=== PATIENT | female | born 1990 | race Caucasian/White ===

== ENCOUNTER 2022-05-19 16:51 | Inpatient (IN) | payer OTHER ==
[~2022-05-19] VITALS: Ht 175.3 cm; Wt 105.7 kg
[2022-05-19 17:54] LABS: HEMOGLOBIN 12.5 gm/dl (12.3-15.3); RED BLOOD COUNT 4.02 M/UL (4.00-5.10); WHITE BLOOD COUNT 12.6 K/UL (4.5-11.0)
[2022-05-19] MEDS ORDERED: PRENATAL TABLE1 EAC6 PO (18:25)
[2022-05-22 06:00] LABS: HEMOGLOBIN 12.1 gm/dl (12.3-15.3)
[2022-05-22] MEDS ORDERED: HYDROCODON-ACE1 EAC4 PO (12:48)
[2022-05-22] MEDS ORDERED: COLACE 100MG C100 MG PO (12:48)
[2022-05-22] MEDS ORDERED: IBUPROFEN800 MG PO (12:48)
== END 2022-05-22 15:47 | disposition home or self-care (01) | DRG 768 ==
LOC: GENOP 16:51 → OB 17:11
PROVIDERS: ADMIT Obstetrics & Gynecology
PROC: 10E0XZZ Delivery of Products of Conception, External Approach (ICD-10-PCS; principal; 2022-05-21)
PROC: 0UQJXZZ Repair Clitoris, External Approach (ICD-10-PCS; 2022-05-21)
PROC: 10907ZC Drainage of Amniotic Fluid, Therapeutic from Products of Conception, Via Natural or Artificial Opening (ICD-10-PCS; 2022-05-21)
PROC: 0HQ9XZZ Repair Perineum Skin, External Approach (ICD-10-PCS; 2022-05-21)
PROC: 3E033VJ Introduction of Other Hormone into Peripheral Vein, Percutaneous Approach (ICD-10-PCS; 2022-05-21)
PROC: 0UH97HZ Insertion of Contraceptive Device into Uterus, Via Natural or Artificial Opening (ICD-10-PCS; 2022-05-21)
PROC: 4A1H7CZ Monitoring of Products of Conception, Cardiac Rate, Via Natural or Artificial Opening (ICD-10-PCS; 2022-05-21)
PROC: 10H073Z Insertion of Monitoring Electrode into Products of Conception, Via Natural or Artificial Opening (ICD-10-PCS; 2022-05-21)
DX: O99.344 Other mental disorders complicating childbirth (principal); Z37.0 Single live birth; F32.A Depression, unspecified; G47.00 Insomnia, unspecified; F41.9 Anxiety disorder, unspecified; O70.0 First degree perineal laceration during delivery; Z3A.39 39 weeks gestation of pregnancy; Z88.2 Allergy status to sulfonamides; Z28.310 Unvaccinated for COVID-19; Z98.890 Other specified postprocedural states; Z80.3 Family history of malignant neoplasm of breast; Z83.3 Family history of diabetes mellitus
CPT/HCPCS: 36415; 81001; 82800; 85014; 85018; 85025; J0290; J1580; J2405; J2590